=== PATIENT | male | born 1985 | race Caucasian/White ===

== ENCOUNTER 2016-11-07 21:41 | Emergency (ER) | payer OTHER ==
[2016-11-07] MEDS ORDERED: LIDOCAINE 1% 10 ML VIAL INJ ONE (21:57)
[2016-11-07 22:02] VITALS: BP 164/89; O2SAT 100
[2016-11-07] MEDS ORDERED: CHLORHEXIDINE GLUCONATE 4 % 15 ML UD TOP ONE (22:09)
--- NOTE | 2016-11-07 22:18 | ED.PDOC ---
History of Present Illness - General Chief Complaint: Skin/Abrasion/Tear Stated Complaint: fish hook in left ear Time Seen by Provider: 11/07/16 22:13 Source: patient, RN notes reviewed, Vital Signs reviewed Exam Limitations: no limitations - History of Present Illness Initial Comments: Patient comes in via private vehicle with a fish hook in his left ear. Timing/Duration: just prior to arrival Severity: mild Location: scalp Improving Factors: nothing Worsening Factors: nothing Associated Symptoms: denies symptoms Allergies/Adverse Reactions: Allergies NO KNOWN ALLERGY Allergy (Verified 11/07/16 22:19) Home Medications: Ambulatory Orders Cephalexin Monohydrate [Keflex] 500 mg PO TID #21 cap 11/07/16 Review of Systems - Review of Systems Constitutional: States: no symptoms reported Respiratory: States: no symptoms reported Cardiology: States: no symptoms reported Musculoskeletal: States: no symptoms reported Skin: States: see HPI Neurological: States: no symptoms reported All other Systems: No Change from Baseline Past Medical History (General) - Patient Medical History Hx Asthma: No Hx Cardiac Disorders: No Hx Diabetes: No Surgical History: tonsillectomy - Vaccination History Hx Tetanus, Diphtheria Vaccination: No - Social History Hx Tobacco Use: No Hx Alcohol Use: Yes - occ Hx Substance Use Treatment: No Family Medical History - Family History Father Family History: Unknown Physical Exam - Physical Exam General Appearance: Alert, Comfortable, No apparent distress, Well Developed, Well Groomed, Well Hydrated, Well Nourished Eyes, Ears, Nose, Throat Exam: other - Left ear: fish hook in external auditory meatus Respiratory: no respiratory distress Extremity: normal range of motion, normal inspection Neurologic: alert, normal mood/affect, oriented x 3 Skin Exam: warm/dry, normal color Skin Problem Location: other - Left ear Skin Character: other - Normal except fish hook Comments: Vital Signs 11/07/16 21:52 Temperature 99.1 F Pulse Rate [ 84 left] Respiratory 18 Rate Blood Pressure 164/89 [left] O2 Sat by Pulse 100 Oximetry Progress - Progress Progress: 11/07/16 22:24 Keflex 500mg PO & TdaP IM given Procedures - Foreign Body Removal Foreign Body Removal: fish hook - L ear: area numbed w/ ~0.5cc of lidocaine. Fish hook bonilla removed without difficulty. Patient tolerated well. After removal area was extensively cleaned with Hibiclens Departure - Departure Clinical Impression: Fish hook injury of cheek Qualifiers: Encounter type: initial encounter Qualified Code(s): S09.93XA - Unspecified injury of face, initial encounter ICD-10 Supporting Text: Fish hook to L ear - no ICD-10 code found Time of Disposition: : Disposition: Discharge to Home or Self Care Condition: Fair Departure Forms: ED Discharge - Pt. Copy, Patient Portal Self Enrollment Instructions: Skin Wound Diet: resume usual diet Activity: increase activity as tolerated Prescriptions: Cephalexin Monohydrate [Keflex] 500 mg PO TID #21 cap Home Medications: Ambulatory Orders Cephalexin Monohydrate [Keflex] 500 mg PO TID #21 cap 11/07/16
[2016-11-07] MEDS: TETANUS,DIPHTHERIA,PERTUSSIS 1 EA SYG IM ONE (22:19)
[2016-11-07] MEDS: CEPHALEXIN MONOHYDRATE 500 MG CAP PO ONE (22:25)
[2016-11-07 22:39] VITALS: TEMP 97.9
== END 2016-11-07 22:39 | disposition home or self-care (01) ==
LOC: ER 21:41
DX: S00.452A Superficial foreign body of left ear, initial encounter (principal); Z23 Encounter for immunization; X58.XXXA Exposure to other specified factors, initial encounter